=== PATIENT | male | born 1950 | race Two or more races ===

== ENCOUNTER → 2017-05-20 | Outpatient (CLI) | payer OTHER ==
[~2017-05-20] MED LIST: OMNIPAQUE 350 MG/ML, 75ML BOTTLE ONE
== END | disposition home or self-care (01) ==
LOC: CFH 08:33
PROVIDERS: ATTEND Surgery
DX: D17.1 Benign lipomatous neoplasm of skin and subcutaneous tissue of trunk (principal); J84.10 Pulmonary fibrosis, unspecified
CPT/HCPCS: 71260; 82565; Q9967